=== PATIENT | female | born 2000 | race Asian ===

== ENCOUNTER 2018-12-12 16:13 | Emergency (ER) | payer OTHER ==
[~2018-12-12] VITALS: Ht 149.9 cm; Wt 57.0 kg
[2018-12-12 16:25] VITALS: BP 113/62
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
[2018-12-12] MEDS ORDERED: ACET325T9 PO (17:48)
[2018-12-12] MEDS ORDERED: CYCL-331 PO (17:48)
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
== END 2018-12-12 18:00 | disposition home or self-care (01) ==
LOC: ER 16:13
DX: O9A.211 Injury, poisoning and certain other consequences of external causes complicating pregnancy, first trimester (principal); S16.1XXA Strain of muscle, fascia and tendon at neck level, initial encounter; V47.6XXA Car passenger injured in collision with fixed or stationary object in traffic accident, initial encounter; Z3A.01 Less than 8 weeks gestation of pregnancy; Y93.89 Activity, other specified; Y92.89 Other specified places as the place of occurrence of the external cause; Y99.8 Other external cause status
CPT/HCPCS: 72040; 81025; 99283; 99284